=== PATIENT | female | born 1995 | race Caucasian/White ===

== ENCOUNTER 2016-11-17 18:55 | Emergency (ER) | payer BC, MEDICAID ==
[~2016-11-17] VITALS: Ht 165.1 cm; Wt 96.8 kg
[~2016-11-17 18:55] MED LIST: MEDR4PAK3 PO; RANI150 PO; ZYRT10TA3 PO
[2016-11-17 19:11] VITALS: BP 132/67; PULSE 85; RESP 16; TEMP 98.4; O2SAT 100
[2016-11-17] MEDS ORDERED: SODIUM CHLOR 0.9% 1000 ML INJ 1,000 ML IV ONE ×2 (19:32)
[2016-11-17] MEDS ORDERED: SODIUM CHLORIDE 0.9% FLUSH 5 ML FLUSH IVF PRN (19:45)
[2016-11-17] MEDS ORDERED: ONDANSETRON HCL 4 MG/2 ML VIAL IVP ONE (19:45)
[2016-11-17] MEDS ORDERED: PANTOPRAZOLE SODIUM 40 MG VIAL IVP ONE (19:45)
[2016-11-17 19:57] LABS: AUTOMATED NEUTROPHIL # 5.6 TH/MM3 (1.8-7.7); BASOPHIL % 0.3 % (0.0-2.0); EOSINOPHIL % 0.1 % (0.0-4.0); HEMATOCRIT 33.1 % (35.0-46.0); HEMO FLAGS DIFF FINAL; LYMPH % 15.6 % (9.0-44.0); LYMPHOCYTE # 1.1 TH/MM3 (1.0-4.8); MEAN CELL VOLUME 78.6 FL (80.0-100.0); MEAN CORPUSCULAR HEMOGLOBIN 26.8 PG (27.0-34.0); MEAN CORPUSCULAR HGB CONC 34.1 % (32.0-36.0); MONO % 1.7 % (0.0-8.0); NEUT % 82.3 % (16.0-70.0); PLATELET COUNT 344 TH/MM3 (150-450); RED BLOOD COUNT 4.21 MIL/MM3 (4.00-5.30); RED CELL DISTRIBUTION WIDTH 14.9 % (11.6-17.2); WHITE BLOOD COUNT 6.8 TH/MM3 (4.0-11.0)
[2016-11-17 20:05] LABS: CHLORIDE 111 MEQ/L (98-107); SODIUM (NA) 142 MEQ/L (136-145)
[2016-11-17 20:09] LABS: ANION GAP 10 MEQ/L (5-15); BICARBONATE 21.4 MEQ/L (21.0-32.0); BLOOD UREA NITROGEN 11 MG/DL (7-18)
[2016-11-17 20:11] LABS: ALT (GPT) 33 U/L (9-42)
[2016-11-17 20:12] LABS: AST (GOT) 16 U/L (16-38); GLOMERULAR FILTRATION RATE 138 ML/MIN (>89)
[2016-11-17 20:13] LABS: TOTAL BILIRUBIN ADULT 0.5 MG/DL (0.2-1.0)
[2016-11-17 20:15] LABS: ALKALINE PHOSPHATASE 75 U/L (45-117)
--- NOTE | 2016-11-17 20:45 | PD ---
HPI Chief Complaint: GI Complaint Time Seen by Provider: 19:32 Travel History International Travel<30 days: No Contact w/Intl Traveler<30days: No Traveled to known affect area: No History of Present Illness HPI 21-year-old female presents to the emergency department by private transportation for complaint of nausea vomiting abdominal cramping and diarrhea since 3 AM. Patient states she ate leftover pizza last evening prior to going to bed and seemed to feel fine and was awakened at 3 AM with nausea and multiple episodes of nausea non-bilious, nonbloody emesis. Patient's had no melena or hematochezia. Patient's had decreased urine output. Patient reports she feels dehydrated. Patient denies any chronic medical concerns or illnesses other than patient does have seasonal allergies. Denies fever or chills. Last menstrual period today. Denies . PFSH Past Medical History Narrative Medical Migraines, meningitis@6 weeks, oral surgery, no tobacco use; nursing notes reviewed Diminished Hearing: No Neurologic: Yes (SPINAL MENINGITIS: AGE 6 WEEKS) Immunizations Current: Yes Migraines: Yes Radiation Therapy: Yes Tetanus Vaccination: > 5 Years Influenza Vaccination: No ?: Not LMP: 11/15/16 : 0 Past Surgical History Oral Surgery: Yes (wisdom teeth ) Social History Alcohol Use: No Tobacco Use: No Substance Use: No Allergies-Medications (Allergen,Severity, Reaction): Coded Allergies: Nut Tree (Verified Allergy, Severe, 11/17/16) Peanut (Verified Allergy, Severe, 11/17/16) Reported Meds & Prescriptions Reported Meds & Active Scripts Active Zofran Odt (Ondansetron Odt) 4 Mg Tab 4 Mg SL Q6HR PRN Phenergan (Promethazine HCl) 25 Mg Tab 25 Mg PO Q6H PRN Review of Systems Except as stated in HPI: all other systems reviewed are Neg General / Constitutional: No: Fever, Chills Eyes: No: Visual changes HENT: No: Headaches, Congestion Cardiovascular: No: Chest Pain or Discomfort Respiratory: No: Shortness of Breath Gastrointestinal: Positive: Nausea, Vomiting, Diarrhea, Abdominal Pain Genitourinary: Positive: Decreased Urinary Output, Vaginal Bleeding (menses) Musculoskeletal: No: Myalgias, Arthralgias Skin: No Rash Neurologic: No: Weakness Psychiatric: No: Anxiety Hematologic/Lymphatic: No: Lymph Node Enlargement Physical Exam Narrative GENERAL: Well-developed well-nourished female in acute distress no respiratory distress SKIN: Warm and dry. HEAD: Normocephalic. EYES: No scleral icterus. No injection or drainage. NECK: Supple, trachea midline. No JVD or lymphadenopathy. CARDIOVASCULAR: Regular rate and rhythm without murmurs, gallops, or rubs. RESPIRATORY: Breath sounds equal bilaterally. No accessory muscle use. GASTROINTESTINAL: Abdomen soft, non-tender, nondistended. MUSCULOSKELETAL: No cyanosis, or edema. BACK: Nontender without obvious deformity. No CVA tenderness. Data Data Last Documented VS Vital Signs Date Time Temp Pulse Resp B/P Pulse Ox O2 Delivery O2 Flow Rate FiO2 11/17/16 22:30 75 16 122/76 99 Room Air 11/17/16 19:11 98.4 Orders Complete Blood Count With Diff (11/17/16 19:32) Comprehensive Metabolic Panel (11/17/16 19:32) Urinalysis - C+S If Indicated (11/17/16 19:32) Lipase (11/17/16 19:32) Iv Access Insert/Monitor (11/17/16 19:32) Ecg Monitoring (11/17/16 19:32) Oximetry (11/17/16 19:32) Ondansetron Inj (Zofran Inj) (11/17/16 19:45) Pantoprazole Inj (Protonix Inj) (11/17/16 19:45) Sodium Chlor 0.9% 1000 Ml Inj (Ns 1000 M (11/17/16 19:32) Sodium Chlor 0.9% 1000 Ml Inj (Ns 1000 M (11/17/16 19:32) Sodium Chloride 0.9% Flush (Ns Flush) (11/17/16 19:45) Enteric Path (Stool) (11/17/16 19:32) Ed Urine Pregnancytest Poc (11/17/16 19:32) Ondansetron Inj (Zofran Inj) (11/17/16 21:15) Metoclopramide Inj (Reglan Inj) (11/17/16 21:30) Electrocardiogram (11/17/16 18:55) Labs Laboratory Tests Test 11/17/16 11/17/16 19:50 21:00 White Blood Count 6.8 TH/MM3 Red Blood Count 4.21 MIL/MM3 Hemoglobin 11.3 GM/DL Hematocrit 33.1 % Mean Corpuscular Volume 78.6 FL Mean Corpuscular Hemoglobin 26.8 PG Mean Corpuscular Hemoglobin 34.1 % Concent Red Cell Distribution Width 14.9 % Platelet Count 344 TH/MM3 Mean Platelet Volume 7.4 FL Neutrophils (%) (Auto) 82.3 % Lymphocytes (%) (Auto) 15.6 % Monocytes (%) (Auto) 1.7 % Eosinophils (%) (Auto) 0.1 % Basophils (%) (Auto) 0.3 % Neutrophils # (Auto) 5.6 TH/MM3 Lymphocytes # (Auto) 1.1 TH/MM3 Monocytes # (Auto) 0.1 TH/MM3 Eosinophils # (Auto) 0.0 TH/MM3 Basophils # (Auto) 0.0 TH/MM3 CBC Comment DIFF FINAL Differential Comment Sodium Level 142 MEQ/L Potassium Level 4.0 MEQ/L Chloride Level 111 MEQ/L Carbon Dioxide Level 21.4 MEQ/L Anion Gap 10 MEQ/L Blood Urea Nitrogen 11 MG/DL Creatinine 0.56 MG/DL Estimat Glomerular Filtration 138 ML/MIN Rate Random Glucose 92 MG/DL Calcium Level 8.8 MG/DL Total Bilirubin 0.5 MG/DL Aspartate Amino Transf 16 U/L (AST/SGOT) Alanine Aminotransferase 33 U/L (ALT/SGPT) Alkaline Phosphatase 75 U/L Total Protein 8.0 GM/DL Albumin 3.6 GM/DL Lipase 103 U/L Urine Collection Type CLEAN CATCH Urine Color YELLOW Urine Turbidity CLEAR Urine pH 5.5 Urine Specific [place] 1.031 Urine Protein TRACE mg/dL Urine Glucose (UA) NEG mg/dL Urine Ketones NEG mg/dL Urine Occult Blood NEG Urine Nitrite NEG Urine Bilirubin NEG Urine Leukocyte Esterase NEG Urine Squamous Epithelial 0-5 /hpf Cells Urine Amorphous Sediment SMALL Urine Bacteria OCC /hpf Urine Mucus MANY /lpf Microscopic Urinalysis Comment CULT NOT INDICATED MDM Medical Decision Making Medical Screen Exam Complete: Yes Emergency Medical Condition: Yes Medical Record Reviewed: Yes Interpretation(s) EKG: Normal sinus rhythm rate [address] elevation injury pattern or ectopy noted Vital Signs Date Time Temp Pulse Resp B/P Pulse Ox O2 Delivery O2 Flow Rate FiO2 11/17/16 19:11 98.4 85 16 132/67 100 CBC & BMP Diagram 11/17/16 19:50 Differential Diagnosis Vomiting, gastroenteritis, food borne illness, viral syndrome, dehydration, electrolyte disturbance Narrative Course IV access obtained specimens collected and sent for resulting patient administered 1 L normal saline bolus as well as normal saline 1 L maintenance fluids at 125 cc per hour and Zofran 4 mg IV Patient requiring additional medication for nausea vomiting had received 4 mg of Zofran en route to the hospital was administer Reglan at this time Lab values in normal range Patient stable for outpatient management Diagnosis Primary Impression: Gastroenteritis Referrals: Primary Care Physician call for appointment Patient Instructions: General Instructions Departure Forms: Tests/Procedures, Work Release Special Instructions: no work x 1 day Additional Instructions: Follow clear liquid diet for next 12-24 hours advance as tolerated to bland/ [place] diet then regular diet avoiding fried and fatty foods Increase fluid hydration Return to the emergency department for a concerns or change in condition; such as fever pain vomiting Take acetaminophen/Tylenol every 4 hours as needed for fever 100.4F or greater Take medication as prescribed as needed for nausea and/or vomiting; takes Zofran as needed for nausea vomiting or Phenergan as needed for breakthrough nausea vomiting No work times one day Med/Other Pt SpecificInfo: Prescription(s) given Scripts Ondansetron Odt (Zofran Odt)4 Mg Tab4 Mg SL Q6HR PRN (Nausea/Vomiting) #7 TAB Ref 0 Prov:Ailin Mendosa MD 11/17/16 Promethazine (Phenergan)25 Mg Tab25 Mg PO Q6H PRN (Nausea/Vomiting) #10 TAB Ref 0 Prov:Ailin Mendosa MD 11/17/16 Disposition: 01 DISCHARGE HOME Condition: Stable Ailin Mendosa MD Nov 17, 2016 20:45
[2016-11-17] MEDS ORDERED: ONDANSETRON HCL 4 MG/2 ML VIAL IV PUSH ONE (21:15)
[2016-11-17] MEDS ORDERED: METOCLOPRAMIDE HCL 10 MG/2 ML VIAL IV PUSH ONE (21:30)
[2016-11-17 21:51] LABS: BLOOD, URINE NEG (NEG); GLUCOSE,URINE NEG (NEG); KETONE, URINE NEG (NEG); NITRITE,URINE NEG (NEG); PH, URINE 5.5 (5.0-8.5)
[2016-11-17 22:00] LABS: METHOD OF COLLECTION CLEAN CATCH; URINE COLOR YELLOW (YELLW/STRAW)
[2016-11-17 22:03] LABS: MUCUS URINE MANY /lpf (OCC)
[2016-11-17 22:04] LABS: BACTERIA, URINE OCC /hpf; COMMENT (UR) CULT NOT INDICATED; CULTURE IF INDICATED CULT NOT INDICATED; SQUAMOUS EPITHELIAL CELL URINE 0-5 /hpf (0-5)
[2016-11-17 22:30] VITALS: BP 122/76; PULSE 75; RESP 16; O2SAT 99
[2016-11-17] MEDS ORDERED: ZOFR4TAB3 SL (23:06)
[2016-11-17] MEDS ORDERED: PROM25TA5 PO (23:06)
--- NOTE | 2016-11-18 22:30 | EKG ---
Date Performed: 11/17/2016 Time Performed: 18:55:32 PTAGE: 21 years EKG: Sinus rhythm Normal ECG NO PREVIOUS TRACING DOCTOR: Leo Holguin Interpretating Date/Time 11/18/2016 22:29:46
== END 2016-11-17 23:51 | disposition home or self-care (01) ==
LOC: PHED 18:55
DX: K52.9 Noninfective gastroenteritis and colitis, unspecified (principal); R10.9 Unspecified abdominal pain
CPT/HCPCS: 80053; 81001; 83690; 84703; 85025; 93005; 96361; 96374; 96375; 99284; C9113; J2405; J2765; J7030